=== PATIENT | female | born 1960 | race Caucasian/White ===

== ENCOUNTER 2023-12-03 15:02 | Emergency (ER) | payer OTHER, SELFPAY ==
[2023-12-03 15:05] VITALS: BP 177/102
--- NOTE | 2023-12-03 16:28 | ED.GENMED ---
History of Present Illness
General
Chief Complaint: Back Pain
Source: patient
Time Seen by Provider: 12/03/23 15:48
Travel History
Have you had any contact with someone who has COVID-19?: No
Do you have any symptoms of coronavirus? Fever > 100 degrees, chills, cough, shortness of breath, sore throat, loss of taste or smell, muscle aches, or headache?: No
History of Present Illness
History of Present Illness:
63-year-old female presents complaining of 1 to 2 weeks worth of lower back pain that radiates down the left buttock posterior thigh into the foot. There is occasional numbness to the foot. No bowel or bladder dysfunction. No fever. No known
injury. Fuqo-wps-eviuzid medications are not helping. No rash. No other complaints at this time
Past History
Past History
ED Past Medical History: Other (Resections of basal cell carcinoma) and Other (Kidney stone)
Social History
Tobacco: Smoker
Drug: None
Phy Exam
Physical Exam
Physical Exam:
General: Well-appearing female no acute respiratory distress
Musculoskeletal exam: Lumbar spine is nontender to palpation. She has good range of motion to the left leg
Vascular: 2+ dorsalis pedis pulse bilateral feet
Neurologic exam: Good sensation light touch left leg. Good strength left leg. Negative straight leg raise patient is ambulatory
Skin is warm no rash
Course
Orders/Labs/Results
Orders:
Orders
12/03/23 15:16
Electrocardiogram (*1) Urgent
Reason for Study: Chest Pain
EKG- Treatment ONCE
Vital Signs
Initial and Last Documented VS:
Initial Vital Signs
Temp Pulse Resp BP Pulse Ox
98.3 F 105 20 177/102 95
12/03/23 15:05 12/03/23 15:05 12/03/23 15:05 12/03/23 15:05 12/03/23 15:05
Last Documented Vital Signs
Temp Pulse Resp BP Pulse Ox
98.3 F 105 20 177/102 95
12/03/23 15:05 12/03/23 15:05 12/03/23 15:05 12/03/23 15:05 12/03/23 15:05
MDM/Problems Addressed
Differential Diagnosis Includes:
Patient with left leg pain that radiates from the back down to the foot. No vascular compromise. No swelling to suggest DVT. Do's likely radiculopathy of the left leg. Will prescribe prednisone and Flexeril. Stable for discharge with follow-up.
No signs of cauda equina
*Critical Care Note
Total Time (30-74mins, 75-104mins- exclusive of procedures): Not Applicable
ED Attending Note
-
Portions of this chart may have been created with voice recognition software.� Occasional wrong word or��sound alike� substitutions may have occurred due to the inherent limitations of voice recognition software.
Discharge Plan
Departure
Patient Disposition: Home (Routine Discharge)
Date of Disposition: 12/03/23
Time of Disposition: 16:30
Patient with high blood pressure during this ER visit?: No
Discharge Problem:
Radiculopathy
Instructions: Sciatica (DC)
Prescriptions:
New
prednisone 10 mg Tablet
See Rx Instructions .ROUTE .COMPLEX Qty: 30 0RF
Rx Instructions:
Take By Mouth:
40 mg daily x3 days, 30 mg daily x3 days,
20 mg daily x3 days, 10 mg daily x3 days.
cyclobenzaprine 10 mg tablet
10 mg PO Q8H PRN (Reason: muscle spasm) Qty: 10 0RF
No Action
oxycodone-acetaminophen 5 MG/325 MG tablet
1 tab PO Q6HPRN PRN (Reason: pain) Qty: 14 0RF
valacyclovir 1,000 MG tablet
1,000 mg PO TID Qty: 21 0RF
Referrals:
Shabbir Oh, DO [Non-Admitting Privileges] -
Purnima Reid CRNP [Family Provider] -
Activity Restrictions/Additional Instructions:
Use medications as directed. Follow-up with back pain specialist for further evaluation. Return if needed otherwise
Interventions
Interventions:
*Risk Screen - Suicide Last Done: 12/03/23 15:05
*General Assessment Last Done: 12/03/23 15:05
*Neglect/Abuse Screening Last Done: 12/03/23 15:05
*ED COVID-19 Vaccine History Last Done: 12/03/23 15:41
[2023-12-03 16:53] VITALS: BP 172/92
== END 2023-12-03 16:55 | disposition home or self-care (01) ==
LOC: EMR 15:02
PROVIDERS: EMERGENCY PHYSICIAN Emergency Medicine; FAMILY PHYSICIAN Nurse Practitioner Family
DX: M54.10 Radiculopathy, site unspecified (principal); F17.200 Nicotine dependence, unspecified, uncomplicated
CPT/HCPCS: 99283; 93005